=== PATIENT | male | born 1975 ===

== ENCOUNTER 2025-09-22 13:52 | Outpatient (AMB) | payer MEDICAID, SELFPAY ==
--- NOTE | 2025-09-22 13:56 | MHC.OFFVIS ---
Intake Visit Reasons: 8M ENCEPHALOPATHY Allergies Penicillins Allergy (Unknown, Verified 09/22/25 14:01) Unknown Medication List - Last Reconciled 09/22/25 by Maryan Montiel CNP albuterol sulfate 90 mcg/actuation (Ventolin HFA) 2 puffs inhalation Q4H PRN amlodipine-benazepril 5-10 mg 1 cap PO DAILY buspirone 10 mg PO BID cholecalciferol (vitamin D3) PO clonazepam 1 mg PO Q12H PRN diltiazem HCl ER 240 mg PO DAILY dupilumab (Dupixent) mg subcut [id number] 100-62.5-25 mcg (Trelegy Ellipta) 1 ea inhalation DAILY hydroxyzine HCl 25 mg PO TID PRN insulin glargine (Lantus Solostar U-100 Insulin) 29 units subcut BID ipratropium-albuterol 0.5 mg-3 mg(2.5 mg base)/3 mL mL inhalation QID metformin 1,000 mg PO BID metoprolol succinate ER 50 mg PO DAILY montelukast 10 mg PO BEDTIME rosuvastatin 20 mg PO DAILY tirzepatide (Mounjaro) 5 mg subcut QWEEK trazodone 50 mg PO BEDTIME HPI Comments Details: He was doing okay. Occasional episodes of full body tremors continue, but not as often. He could go weeks without any episodes. Last episode was about 2.5 weeks ago. Clonazepam usually helped, but sometimes he would need to repeat dose. Duration and frequency of tremors is reduced. Balance was still off at times, but he was walking with walker, no falls. Sleep was okay with CPAP. Asthma was better with Dupixent. Initially, he was having full body tremors that were happening 3-7 days continously except when sleeping. In 03/2025, episodes were down to 2-3x/week. [facility] Medical History (Updated 09/22/25 @ 14:00 by Maryan Montiel CNP) Diabetes Hyperlipidemia Hypertension Anxiety Asthma Tremors of nervous system Hypoxic encephalopathy Review of Systems Const Denies chills, Denies daytime sleepiness, Denies difficulty sleeping, Denies fatigue, Denies fever(s), Denies frequent falls, Denies headache(s), Denies increased appetite, Denies poor appetite, Denies snoring, Denies weakness, Denies weight gain and Denies weight loss Eyes Denies loss of vision ENT Denies vertigo, Denies dizziness, Denies headache(s) and Denies neck pain Card Denies chest pain at rest, Denies chest pain with activity, Denies syncope, Denies leg edema, Denies palpitations, Reports dyspnea and Denies dyspnea on exertion Resp Denies cough, Reports dyspnea, Denies dyspnea on exertion and Denies snoring GI Denies abdominal pain, Denies constipation, Denies heartburn, Denies diarrhea and Denies nausea Reports urinary frequency, Denies urinary incontinence and Denies urinary urgency Musc Denies abnormal gait, Reports back pain, Denies myalgias, Denies arthralgias, Denies neck pain, Reports numbness and Reports tingling Neuro Denies abnormal gait, Denies vertigo, Denies dizziness, Denies syncope, Denies frequent falls, Denies headache(s), Denies lack of coordination, Denies loss of vision, Reports memory loss, Reports numbness, Denies Other visual disturbances, Reports restless legs, Denies seizure-like activity, Reports tingling, Denies paresthesias, Reports tremor(s), Denies weakness and Reports other (balance difficulty) Psych Reports anxiety, Denies depression, Denies auditory hallucinations, Reports memory loss and Denies visual hallucinations Endo Denies fatigue and Denies palpitations Physical Exam Const Other: General Appearance:? normal, in no acute distress. Heart:? S1, S2 normal, no murmurs. Lungs:? clear anteriorly and posteriorly. Musculoskeletal:? normal. Extremities:? no edema. Psych:? alert, oriented, cognitive function intact, cooperative with exam. Neuro Other: Abnormal Neurological Findings:?Slight dysmetria on FTN, L > R. Walking with walker. Mental Status: alert and oriented X 3. Normal attention, orientation, memory, and affect. Cranial Nerves: Pupils are equal, round, and reactive to light. External ocular muscles are intact. Visual michael are full, no ptosis. Face is symmetrical, no facial weakness or droop. Facial sensations are normal. Tongue protrudes in midline. Palate elevates symmetrically. Shoulder shrugging is normal Motor Examination: Normal muscle tone, bulk and strength. No atrophy or fasciculations. No drift of the extended upper extremities. DTR 2+. Plantars are flexor. Sensory Exam: Normal light touch, temperature, pinprick, vibration, and joint-position sensations. Rhomberg sign is absent. Coordination: No ataxia. No titubation. Gait Exam: With walker. Cerebellar Signs: [id number] as above. Extrapyramidal System: No tremor, rigidity with normal facial expressions. No bradykinesia. No bradyphrenia. Normal arm swing and posture. No propulsion or retropulsion. Speech: Normal. Results Reviewed Results Reviewed: EEG 08/07/2023: WNL Assessment & Plan Assessment & Plan (1) Tremors of nervous system: Code(s): R25.1 - Tremor, unspecified Category: Medical Plan: Continue clonazepam 1mg 1 tablet every 12 hours as needed for tremors #30 for 30 days. (2) Hypoxic encephalopathy: Code(s): G93.1 - Anoxic brain damage, not elsewhere classified Category: Medical Plan . Coding Level of Care Code Est Pt Level 4 (70137) Diagnoses Tremors of nervous system R25.1 Hypoxic encephalopathy G93.1
== END 2025-09-22 14:11 | disposition home or self-care (01) ==
LOC: HO.HSM 13:53
PROVIDERS: PCP Nurse Practitioner; Referring Provider Nurse Practitioner Family; Visit Provider Registered Nurse
DX: R25.1 Tremor, unspecified (principal); G93.1 Anoxic brain damage, not elsewhere classified
CPT/HCPCS: 99214

== ENCOUNTER → 2025-09-22 13:52 | Outpatient (BNVA) | payer MEDICAID, SELFPAY | PROVIDERS: PCP Nurse Practitioner; Referring Provider Nurse Practitioner Family; Visit Provider Registered Nurse | DX: G93.1 Anoxic brain damage, not elsewhere classified (principal); R25.1 Tremor, unspecified | CPT/HCPCS: 99212 ==